=== PATIENT | male | born 1995 | race Caucasian/White ===

== ENCOUNTER 2016-09-03 08:13 | Emergency (ER) | payer BC ==
[~2016-09-03] VITALS: Ht 190.5 cm; Wt 103.0 kg
[2016-09-03 08:17] VITALS: TEMP 36.6; Ht 190.5 cm; Wt 103.0 kg
[2016-09-03] MEDS ORDERED: MELA1TAB5 PO (08:28)
[2016-09-03] MEDS ORDERED: KETOROLAC TROMETHAMINE 30 MG/ML VIAL IV STA (08:40)
[2016-09-03] MEDS ORDERED: OPTIRAY 320 IV PRN (09:00)
[2016-09-03 09:22] LABS: BASO % 0.2 %; BASO ABS # 0.02 K/uL (0-0.2); COMPLETE YES; EOS % 1.8 %; HEMATOCRIT 43.5 % (42-52); IG% 0.2 %; LYMPH % 24.4 %; LYMPH ABS # 2.12 K/uL (1.2-3.4); MEAN CELL VOLUME 87.2 fL (80-100); MEAN CORPUSCULAR HEMOGLOBIN 30.5 pg (25-34); MEAN CORPUSCULAR HGB CONC 34.9 g/dl (32-36); MEAN PLATELET VOLUME 12.1 fL (7.4-10.4); MONO % 11.7 %; NEUT % 61.7 %; PLATELET COUNT 163 K/uL (130-400); RED BLOOD COUNT 4.99 M/uL (4.7-6.1)
[2016-09-03 09:40] LABS: BUN/CREATININE RATIO 11.3 (10-20); CALCIUM 8.5 mg/dl (8.5-10.1); CREATININE 1.2 mg/dl (0.60-1.40); POTASSIUM 4.1 mmol/L (3.5-5.1)
--- NOTE | 2016-09-03 10:36 | DIAGNOSTIC IMAGING REPORT ---
CT maxillofacial region FACIAL-MAXILLOFACIAL WITH CLINICAL HISTORY: R facial mass/abscess vs cyst vs hematoma mass TECHNIQUE: Transaxial acquisition with multi axial reformatted images COMPARISON STUDY: None FINDINGS: Complex partially enhancing subcutaneous lesion medially anterior to the right parotid gland. This measures 3 x 2 cm. It is surrounded by infiltrative change and/or cellulitis-type change within the subcutaneous fat extending from the level of the right external auditory canal inferiorly to the level of the right mandibular angle. No evidence of bony involvement. Mild scattered cervical adenopathy. Structures the glottic and subglottic regions are unremarkable. Submandibular glands are symmetric. IMPRESSION: 1. Rather diffuse right facial cellulitis 2. This is associated with a 3 x 2 cm peripherally enhancing lesion anterior and slightly inferior to the right parotid gland. 3. This is suggestive of abscess, hematoma, or less likely possibility of a neoplastic process. 4. No evidence for bony involvement or destructive change. 5. Several reactive cervical nodes in the cervical chains bilaterally. Electronically signed by: Devin Ingram M.D. 09/03/2016 10:35 AM Dictated Date/Time: 09/03/2016 10:30 AM
[2016-09-03] MEDS ORDERED: CEFTRIAXONE SOD INJ 1 GM ADDVIAL IV STA (10:48)
[2016-09-03] MEDS ORDERED: CEPH500C PO (11:00)
[2016-09-03 11:20] VITALS: BP 140/72; PULSE 64; O2SAT 96
--- NOTE | 2016-09-03 16:49 | EMERGENCY ROOM VISIT NOTE ---
History First contact with patient: 08:36 Chief Complaint: OTHER COMPLAINT Stated Complaint: LARGE SWELLING ON SIDE OF FACE History of Present Illness The patient is a 20 year old male who presents to the Emergency Room with complaints of swelling on the right facial region. The patient reports that a friend accidentally elbowed him last evening, and has had significantly worsening swelling since. 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 He reports that they performed a steroid injection which helped to reduce the size. The patient reports that within a few weeks, it started to increase in size again. Prior to last night's trauma, he denied any significant pain. He currently denies any paresthesias or numbness of the right facial region. He denies any dental pain or neck pain. He reports that the swelling has almost doubled in size since last night. He rates his discomfort a 3 out of 10. Review of Systems 10 system review was performed and was negative except for pertinent positives and negatives as indicated in history of present illness Past Medical/Surgical History Medical Problems: (1) No significant past medical history Surgical Problems: (1) No history of previous surgery Family History FH: cancer FH: diabetes mellitus FH: lung disease Social History Smoking Status: Current Some Day Smoker Alcohol Use: none Marital Status: single Occupation Status: [employer] student Current/Historical Medications Scheduled Cephalexin Monohydrate (Keflex), 500 MG PO QID Melatonin (Kp Melatonin), 3 MG PO HS Allergies Coded Allergies: No Known Allergies (Unverified , 09/03/16) Physical Exam Vital Signs Date Time Temp Pulse Resp B/P Pulse Ox O2 Delivery O2 Flow Rate FiO2 09/03/16 11:20 64 20 140/72 96 09/03/16 10:10 66 20 134/66 98 Room Air 09/03/16 08:17 36.6 80 20 138/81 98 Room Air Physical Exam CONSTITUTIONAL: Healthy and well nourished. Alert and oriented X 3 with positive affect. Patient does not appear in any acute distress. HEENT: Examination shows significant swelling on the right facial region. No obvious areas of fluctuance noted. There is mild generalized erythema about that site. He has an area of underlying induration that is walnut sized. He is able to open and close the mouth without discomfort. Pupils equal, round and reactive. No evidence for epistaxis. OROPHARYNX: No intraoral erythema or edema noted. No dental trauma appreciated. NECK: Full active range of motion without discomfort. MUSCULOSKELETAL: Full range of motion of all joints without discomfort. INTEGUMENTARY: No rash or other significant dermatologic conditions noted. NEUROLOGIC: No focal neurologic deficits noted. Facial sensations are intact. Medical Decision & Procedures ER Provider Diagnostic Interpretation: CT of the facial bones with IV contrast shows the following: CT maxillofacial region FACIAL-MAXILLOFACIAL WITH CLINICAL HISTORY: R facial mass/abscess vs cyst vs hematoma mass TECHNIQUE: Transaxial acquisition with multi axial reformatted images COMPARISON STUDY: None FINDINGS: Complex partially enhancing subcutaneous lesion medially anterior to the right parotid gland. This measures 3 x 2 cm. It is surrounded by infiltrative change and/or cellulitis-type change within the subcutaneous fat extending from the level of the right external auditory canal inferiorly to the level of the right mandibular angle. No evidence of bony involvement. Mild scattered cervical adenopathy. Structures the glottic and subglottic regions are unremarkable. Submandibular glands are symmetric. IMPRESSION: 1. Rather diffuse right facial cellulitis 2. This is associated with a 3 x 2 cm peripherally enhancing lesion anterior and slightly inferior to the right parotid gland. 3. This is suggestive of abscess, hematoma, or less likely possibility of a neoplastic process. 4. No evidence for bony involvement or destructive change. 5. Several reactive cervical nodes in the cervical chains bilaterally. Laboratory Results 09/03/16 09:04 Red Blood Count 4.99, Mean Corpuscular Volume 87.2, Mean Corpuscular Hemoglobin 30.5, Mean Corpuscular Hemoglobin Concent 34.9, Mean Platelet Volume 12.1, Neutrophils (%) (Auto) 61.7, Lymphocytes (%) (Auto) 24.4, Monocytes (%) (Auto) 11.7, Eosinophils (%) (Auto) 1.8, Basophils (%) (Auto) 0.2, Neutrophils # (Auto ) 5.36, Lymphocytes # (Auto) 2.12, Monocytes # (Auto) 1.02, Eosinophils # (Auto ) 0.16, Basophils # (Auto) 0.02 09/03/16 09:04 Test 09/03/16 09:04 White Blood Count 8.70 K/uL (4.8-10.8) Red Blood Count 4.99 M/uL (4.7-6.1) Hemoglobin 15.2 g/dL (14.0-18.0) Hematocrit 43.5 % (42-52) Mean Corpuscular Volume 87.2 fL (80-100) Mean Corpuscular Hemoglobin 30.5 pg (25-34) Mean Corpuscular Hemoglobin Concent 34.9 g/dl (32-36) Platelet Count 163 K/uL (130-400) Mean Platelet Volume 12.1 fL (7.4-10.4) Neutrophils (%) (Auto) 61.7 % Lymphocytes (%) (Auto) 24.4 % Monocytes (%) (Auto) 11.7 % Eosinophils (%) (Auto) 1.8 % Basophils (%) (Auto) 0.2 % Neutrophils # (Auto) 5.36 K/uL (1.4-6.5) Lymphocytes # (Auto) 2.12 K/uL (1.2-3.4) Monocytes # (Auto) 1.02 K/uL (0.11-0.59) Eosinophils # (Auto) 0.16 K/uL (0-0.5) Basophils # (Auto) 0.02 K/uL (0-0.2) RDW Standard Deviation 41.9 fL (36.4-46.3) RDW Coefficient of Variation 13.1 % (11.5-14.5) Immature Granulocyte % (Auto) 0.2 % Immature Granulocyte # (Auto) 0.02 K/uL (0.00-0.02) Anion Gap 7.0 mmol/L (3-11) Est Creatinine Clear Calc Drug Dose 128.7 ml/min Estimated GFR () 101.0 Estimated GFR (Non- 87.1 BUN/Creatinine Ratio 11.3 (10-20) Calcium Level 8.5 mg/dl (8.5-10.1) The above labs were reviewed and were grossly normal. Medications Administered Medications (Trade) Dose Ordered Sig/Dimas Route Start Time Stop Time Status Last Admin Dose Admin Ketorolac Tromethamine (Toradol Inj) 30 mg NOW STAT IV 09/03/16 08:40 09/03/16 08:43 DC 09/03/16 09:08 30 MG Ceftriaxone Sodium (Rocephin Inj) 1 gm NOW STAT IV 09/03/16 10:48 09/03/16 10:49 DC 09/03/16 10:54 1 GM ED Course Patient history and physical exam were performed. Nurse's notes were reviewed. IV access was established, and labs were drawn. Labs were reviewed and were grossly normal. CT of the facial bones shows generalized facial cellulitis with a small area of fluid collection versus possible neoplastic process. Results were discussed with the patient. I elected to refer the patient to maxillofacial surgery for further evaluation. The patient was administered Rocephin 1 g IV. He will be discharged on Keflex antibiotics. He refused any prescription analgesics. He was provided contact information for Dr. Chisholm, and instructed to contact his office tomorrow morning for an appointment. Contact the emergency department if he has any difficulty establishing this appointment. He was instructed to return for any significantly worsening swelling, redness, pain or fever. The patient was happy with plan of care, and rated his discomfort a 2 out of 10 at the time of discharge. Medical Decision Differentials include cellulitis, underlying abscess, hematoma, parotiditis, dental infection, cystic formation or malignancy. Impression Primary Impression: Diffuse cellulitis of face Departure Information Prescriptions Cephalexin Monohydrate (Keflex) 500 Mg Cap 500 MG PO QID for 7 Days, #28 CAP Prov: Lamont Cochran PA 09/03/16 Referrals No Doctor, Assigned (PCP) Patient Instructions [facility]
== END 2016-09-03 11:22 | disposition home or self-care (01) ==
LOC: C.EDB 08:15
DX: L03.211 Cellulitis of face (principal); F17.200 Nicotine dependence, unspecified, uncomplicated